=== PATIENT | male | born 1950 | race Caucasian/White ===

== ENCOUNTER 2019-09-30 06:14 | Inpatient (IN) | payer MEDICARE ==
[~2019-09-30] VITALS: Ht 172.7 cm; Wt 78.0 kg
[2019-09-30] VITALS (8 sets, daily range): BP systolic 93–169; BP diastolic 52–74
[2019-09-30] MEDS ORDERED: DICLOFENAC SOD50 M1 PO (06:32)
[2019-09-30] MEDS ORDERED: CRESTOR10 MG PO (06:32)
--- NOTE | 2019-09-30 06:58 | NUR ---
REPORT RECEIVED FROM ADAN PRATT. THIS NURSE TO ASSUME PT CARE AT THIS TIME.
[2019-09-30 07:02] LABS: ABSOLUTE BASOPHILS 0.1 thou/uL (0.0-0.2); ABSOLUTE EOSINOPHILS 0.1 thou/uL (0.0-0.7); ABSOLUTE LYMPHOCYTES 1.1 thou/uL (0.8-5.3); ABSOLUTE MONOCYTES 0.5 thou/uL (0.0-1.2); ABSOLUTE NEUTROPHILS 5.5 thou/uL (1.6-8.1); BASOPHILS 0.7 %; EOSINOPHILS 1.4 %; HEMATOCRIT 42.5 % (42.0-52.0); HEMOGLOBIN 14.3 gm/dL (14.0-18.0); LYMPHOCYTES 14.8 %; MCH 29.2 pg (26.0-34.0); MCHC 33.7 g/dL (28.0-37.0); MCV 86.8 fL (80.0-100.0); MONOCYTES 6.4 %; MPV 7.8 fl. (7.2-11.1); NUCLEATED RBCS 0 /100WBC; PLATELET COUNT* 261 thou/uL (150-400); POLYS 76.7 %; RBC 4.89 mil/uL (4.50-6.00); WBC 7.2 thou/uL (4.0-11.0)
[2019-09-30 07:11] LABS: CALCIUM 8.5 mg/dL (8.5-10.1); CREATININE 0.9 mg/dL (0.6-1.3); POTASSIUM 3.7 mmol/L (3.5-5.1)
[2019-09-30 07:19] LABS: ALBUMIN 3.4 g/dL (3.4-5.0); MAGNESIUM 2.2 mg/dL (1.8-2.4); TOTAL BILIRUBIN 0.4 mg/dL (<0.1-1.0); TOTAL PROTEIN 7.6 g/dL (6.4-8.2)
--- NOTE | 2019-09-30 10:20 | EKG ---
[place] [address] ELECTROCARDIOGRAM REPORT Name: KIANNA HU LINDSAY Room: [facility]#: [id number] Admission: 09/30/19 Attend Phys: Discharge: Date of : 48 Date of Service: 09/30/19625 Report #: [id number] THIS REPORT FOR: //name// [facility] ED Test Date: 2019-09-30 Test Time: 06:26:28 Pat Name: KIANNA HU Department: Room: Gender: Advertising Designer: [place] : 1950 Requested By: Huber Sanders Order Number: [id number] MD: Blaze Ricketts Measurements Intervals [place] Rate: 55 P: -12 IN: 203 QRS: -24 QRSD: 105 T: 1 QT: 452 QTc: 433 Interpretive Statements Sinus rhythm Inferior infarct, old No previous ECG available for comparison Electronically Signed On 09-30-2019 10:19:48 INDUCTION COORDINATION POWER ENGINEER by Blaze Ricketts [email or web address] <ELECTRONICALLY SIGNED> By: Blaze Ricketts MD, [facility] 09/30/19 1019 5 5 Blaze Ricketts MD, FACC /EPI
--- NOTE | 2019-09-30 16:30 | NUR ---
REPORT GIVEN TO ADAN AZAR WHO IS TO ASSUME PT CARE INPATIENT NURSE.
--- NOTE | 2019-10-01 03:43 | NUR ---
PATIENT SLEPT OFF AND ON DURING THE NIGHT WITH AT BEDSIDE. PT IS ON ROOM AIR. LOW BLOOD PRESSURE BUT WITHIN NORMAL A DOCUMENTED AT BEGINNING OF THE SHIFT BUT IT HAS COME UP. PT C/O RT CHEST (LUNG) PAIN; TRAMADOL GIVEN. PT RETURNED TO SLEEP. PT WITH FLUIDS INFUSING PER DR ORDER. FREQUENTLY USED ITEMS AND CALL LIGHT WITHIN REACH. SIDERAILS UPX2. WILL CONTINUE TO MONITOR.
[2019-10-01 03:52] LABS: HEMATOCRIT 36.5 % (42.0-52.0); MCH 28.6 pg (26.0-34.0); MCHC 32.9 g/dL (28.0-37.0); MCV 87.1 fL (80.0-100.0); MPV 8.1 fl. (7.2-11.1); RBC 4.19 mil/uL (4.50-6.00); RDW-CV 14.1 % (10.5-14.5); WBC 18.7 thou/uL (4.0-11.0)
[2019-10-01 04:22] LABS: CALCIUM 8.1 mg/dL (8.5-10.1); POTASSIUM 4.4 mmol/L (3.5-5.1)
[2019-10-01 08:40] VITALS: BP 106/56
[2019-10-01 16:00] VITALS: BP 113/62
[2019-10-01 20:00] VITALS: BP 116/66
--- NOTE | 2019-10-01 20:09 | NUR ---
PATIENT AWAKE IN BED. PATIENT AMBULATED IN ROOM TO CHAIR AND BATHROOM. ALL SAFETY MEASURES MAINTAINED. PATIENT DENIES FURTHER NEEDS AT THIS TIME. FAMILY AT BEDSIDE.
[2019-10-02 04:40] LABS: HEMATOCRIT 33.5 % (42.0-52.0); HEMOGLOBIN 11.3 gm/dL (14.0-18.0); MCH 29.5 pg (26.0-34.0); MCHC 33.7 g/dL (28.0-37.0); MCV 87.8 fL (80.0-100.0); MPV 8.6 fl. (7.2-11.1); RBC 3.81 mil/uL (4.50-6.00); RDW-CV 14.1 % (10.5-14.5); WBC 14.3 thou/uL (4.0-11.0)
--- NOTE | 2019-10-02 04:43 | NUR ---
PO PAIN MEDICATION GIVEN EVERY 6 HOUR REQUESTED BY PAIN FRO LOWER RIGHT CHEST PAIN, NO COUGH NOTED, PT TO BATHROOM WITHOUT DIFF, RESTED WILL THROUGHOUT HOURLY ROUNDS , WILL CONITUE WITH PRESENT PLAN OF CARE.
[2019-10-02 04:52] LABS: CALCIUM 7.7 mg/dL (8.5-10.1); MAGNESIUM 2.1 mg/dL (1.8-2.4); POTASSIUM 3.8 mmol/L (3.5-5.1)
[2019-10-02 08:06] VITALS: BP 117/58
[2019-10-02 12:20] LABS: INFLUENZA A ANTIGEN Negative (Negative); INFLUENZA B ANTIGEN Negative (Negative)
--- NOTE | 2019-10-02 13:05 | CON ---
[address] [address] CONSULTATION Name: KIANNA HU Room: [address] IN .R.#: [id number] Admission: 09/30/19 Attend Phys: Beth Huynh MD Discharge: Date of : 48 Report #: [id number] THIS REPORT FOR: //name// cc: MAVERICK - No family physician/PCP MAVERICK - No family physician/PCP ~ THIS REPORT FOR: //name// CC: MAVERICK physician/PCP Beth Huynh DATE OF SERVICE: 10/01/2019 I was asked to see this 69-year-old gentleman for abnormal CT of the chest. HISTORY OF PRESENT ILLNESS: He is a lifelong nonsmoker. He was brought to the Emergency Room with chest pain, which was right-sided and was worse with deep breaths, which was started yesterday. About a week ago, he noticed a cough. He denies fever or chills. He did have some head congestion. He denies gastroesophageal reflux symptoms or diarrhea. He denies fever or chills. PAST MEDICAL HISTORY: Hypercholesterolemia. ALLERGIES: No known drug allergies. MEDICATIONS: Currently, he is on azithromycin, ibuprofen, Toradol p.r.n., Rocephin, Lipitor, Lovenox 40 mg subcutaneous daily. SOCIAL HISTORY: He is a lifelong nonsmoker. FAMILY HISTORY: Both parents had lung cancer. They were heavy smoker. REVIEW OF SYSTEMS: As mentioned as above, other systems otherwise negative. PHYSICAL EXAMINATION: GENERAL: Well-developed gentleman. VITAL SIGNS: His O2 saturation is 98%, respiratory rate 20, heart rate 81, blood pressure 128/64, temperature 36.6. HEENT: Normocephalic, atraumatic. Pupils are equal, round, reactive to light. Throat is clear. Nose is clear. NECK: There is no JVD, lymphadenopathy or thyromegaly. CARDIOVASCULAR: Regular rate and rhythm. PMI is nondisplaced. CHEST: Inspection is normal. LUNGS: There are diminished breath sounds on the right. Left is clear to auscultation. ABDOMEN: Soft. Bowel sounds are good. There is no mass. EXTREMITIES: [place] [address] CONSULTATION Name: KIANNA HU LINDSAY Room: [address] IN [facility]#: [id number] Admission: 09/30/19 Attend Phys: Beth Huynh MD Discharge: Date of : 48 Report #: [id number] LYMPHATICS: There is no lymphadenopathy. NEUROLOGIC: Alert and oriented. SKIN: Warm. LABORATORY DATA: I reviewed the following lab data: WBC 18.7, hemoglobin 12, platelet 233. Sodium 138, potassium 4.4, chloride 105, CO2 is 24, BUN 21, creatinine 1, glucose 110. Troponin less than 0.06. CT of the chest did show a right middle lobe pleural based consolidation versus mass versus atelectasis. No evidence of pulmonary embolism, right middle lobe, right lower lobe atelectasis, right elevated hemidiaphragm. IMPRESSION: 1. Pleuritic chest pain. 2. Abnormal CT of the chest. Differential diagnosis consolidation versus mass versus atelectasis. 3. ? pneumonia. 4. Hyperlipidemia. PLAN AND RECOMMENDATIONS: 1. Titrate FiO2 to keep O2 saturation 92%. 2. Start bronchodilator. 3. Continue antibiotic. 4. Influenza A and B. Nasal swab for influenza A and B. 5. I do recommend a repeat CT of the chest in 4 weeks. If he continues to have the pleural based mass/consolidation, he would require CT-guided biopsy. 6. The findings and recommendations were discussed with the patient, his and Dr. Huynh. Thank you very much for allowing me to participate in care of this very nice gentleman. <ELECTRONICALLY SIGNED> By: Carmelita Wiley MD 10/02/19 1305 1056 [id number] Wiley MD /nt
[2019-10-02 16:00] VITALS: BP 127/58
--- NOTE | 2019-10-02 19:55 | NUR ---
PATIENT AWAKE IN BED WITH SPOUSE AT BEDSIDE. PATIENT ENCOURAGED TO AMBULATED AND USE IS THROUGHOUT [facility]. ALL SAFETY MEASURES MAINTAINED. PATIENT DENIES FURTHER NEEDS AT THIS TIME.
[2019-10-02 20:00] VITALS: BP 138/69
[2019-10-03 04:07] LABS: HEMATOCRIT 36.6 % (42.0-52.0); HEMOGLOBIN 12.2 gm/dL (14.0-18.0); MCHC 33.4 g/dL (28.0-37.0); MCV 86.8 fL (80.0-100.0); MPV 8.3 fl. (7.2-11.1); RBC 4.22 mil/uL (4.50-6.00); RDW-CV 14.1 % (10.5-14.5); WBC 12.9 thou/uL (4.0-11.0)
[2019-10-03 04:37] LABS: ALBUMIN 2.3 g/dL (3.4-5.0); CALCIUM 8.2 mg/dL (8.5-10.1); CREATININE 0.9 mg/dL (0.6-1.3); POTASSIUM 3.7 mmol/L (3.5-5.1); TOTAL BILIRUBIN 0.4 mg/dL (<0.1-1.0); TOTAL PROTEIN 6.3 g/dL (6.4-8.2)
[2019-10-03 04:43] LABS: TOTAL PROTEIN 5.7 g/dL (6.4-8.2)
[2019-10-03 08:00] VITALS: BP 135/66
[2019-10-03 09:13] LABS: APTT 35.5 Seconds (25.0-31.3); PROTIME 10.7 Seconds (9.20-11.50)
[2019-10-03 16:00] VITALS: BP 144/80
--- NOTE | 2019-10-03 16:16 | NUR ---
Pt lives at home with spouse. No known history of HH or SNF and no DME used prior to hospitalization. SW/CM to continue to follow to assist with safe dc planning.
[2019-10-03 17:33] LABS: BF RBC 1741 /mm3; TOTAL CELL COUNT 1379 /mm3
[2019-10-03 17:49] LABS: SOURCE THORACENTESIS
[2019-10-03 17:54] LABS: CLARITY SLIGHTLY HAZY; TOTAL VOLUME 55 ml
[2019-10-03 18:07] LABS: BF LYMPHOCYTES 1 %; BF POLYS 99 %
[2019-10-03 18:09] LABS: SOURCE THORACENTESIS
[2019-10-03 20:00] VITALS: BP 159/68
[2019-10-04 05:17] LABS: ABSOLUTE BASOPHILS 0.1 thou/uL (0.0-0.2); ABSOLUTE EOSINOPHILS 0.2 thou/uL (0.0-0.7); ABSOLUTE LYMPHOCYTES 0.9 thou/uL (0.8-5.3); ABSOLUTE MONOCYTES 0.9 thou/uL (0.0-1.2); ABSOLUTE NEUTROPHILS 8.8 thou/uL (1.6-8.1); BASOPHILS 0.5 %; EOSINOPHILS 1.6 %; HEMATOCRIT 35.6 % (42.0-52.0); HEMOGLOBIN 12.2 gm/dL (14.0-18.0); LYMPHOCYTES 8.6 %; MCH 29.3 pg (26.0-34.0); MCHC 34.2 g/dL (28.0-37.0); MCV 85.6 fL (80.0-100.0); MONOCYTES 8.1 %; MPV 7.5 fl. (7.2-11.1); NUCLEATED RBCS 0 /100WBC; PLATELET COUNT* 248 thou/uL (150-400); POLYS 81.2 %; RBC 4.15 mil/uL (4.50-6.00); RDW-CV 14.1 % (10.5-14.5); WBC 10.8 thou/uL (4.0-11.0)
[2019-10-04 05:29] LABS: CALCIUM 7.8 mg/dL (8.5-10.1); CREATININE 0.9 mg/dL (0.6-1.3); POTASSIUM 3.4 mmol/L (3.5-5.1)
--- NOTE | 2019-10-04 06:43 | NUR ---
ASSUMED CARES AT 1920. ALERT AND ORIENTED. PLEASANT. C/O PAIN TO RIGHT SIDE CHEST TUBE SITE. PAIN MEDS GIVEN NEEDED. USED URINAL. PT WANTED TO HOLD OFF MAG CITRATE FOR NOW. CHEST TUBE ON CONTINUOUS SUCTION WITH YELLOW DRAINAGE NOTED. DRESSING CHANGED/REINFORCED. PT C/O FEELING SOB INITIALLY BUT FELT BETTER NIGHT WENT ON. SLEPT LITTLE. AT BEDSIDE.
[2019-10-04 07:25] VITALS: BP 132/69
--- NOTE | 2019-10-04 15:47 | NUR ---
ASSUMED CARE OF PT AROUND 0730 THIS AM. REFER TO ASSESSMENT. PULMOLOGY ANTICIPATES INJECTED PLEUREL EFFUSION WITH BLOOD THINNER TO DECREASE VISCOSITY OF FLUID TO DRAIN IN CHEST TUBE. LOVENOX ON HOLD AT THIS TIME. ANTICIPATE PROCEDURE TOMORROW. NO OTHER CONCERNS AT THIS TIME. CLWR. WCTM.
[2019-10-04 16:00] VITALS: BP 152/86
--- NOTE | 2019-10-04 18:04 | NUR ---
ASSUMED CARE OF PATIENT FROM ADAN COLON. PATIENT RESTING IN BED AT THIS TIME. CHEST TUBE TO RIGHT SIDE, NO ABNORMALITIES NOTED WITH CHEST TUBE/CHAMBER. IVF INFUSING. WILL CONTINUE TO MONITOR.
--- NOTE | 2019-10-04 19:30 | NUR ---
PT CHEST TUBE EXAMINED AT SHIFT CHANGE BY ADAN GALEAS AND MYSELF, SUCTION MAINTAINED AT -20, NO BUBBLING IN CHEST TUBE CHAMBER, YELLOW LIQUID PRESENT IN CHEST TUBING. PT FAMILY MEMBER STATES SHE THINKS "THERE SHOULD BE BUBBLES". GUDELIA ARELLANO NOTIFIED NSG SUP JEREMIAH WHO VERIFIES NO BUBBLING SHOULD BE NOTED. FAMILY MEMBER INFORMED, REQUESTING NSG SUP TO COME CHECK IT.INFORMED NSG SUP OF PT REQUEST, STATES SHE IS NOT AVAILABLE AT THIS TIME DUE TO URGENCY ON OTHER UNIT. PT VSS, BREATHING WITHOUT DIFFICULTY, SATS WNL. TALKING AND PLEASANT. WILL CONTINUE TO MONITOR. CALL LITE IN EASY REACH.
[2019-10-04 19:45] VITALS: BP 148/78
--- NOTE | 2019-10-05 01:00 | NUR ---
CHRISTOPHER DANIELS HERE TO CHECK ON CHEST TUBE, CONFIRMS ITS OPERATING IT SHOULD. WILL CONTINUE TO MONITOR.
[2019-10-05 05:25] LABS: ABSOLUTE BASOPHILS 0.1 thou/uL (0.0-0.2); ABSOLUTE EOSINOPHILS 0.2 thou/uL (0.0-0.7); ABSOLUTE LYMPHOCYTES 0.9 thou/uL (0.8-5.3); ABSOLUTE MONOCYTES 0.8 thou/uL (0.0-1.2); ABSOLUTE NEUTROPHILS 7.6 thou/uL (1.6-8.1); BASOPHILS 0.6 %; EOSINOPHILS 1.6 %; HEMATOCRIT 39.1 % (42.0-52.0); HEMOGLOBIN 13.2 gm/dL (14.0-18.0); LYMPHOCYTES 9.3 %; MCH 29.2 pg (26.0-34.0); MCHC 33.8 g/dL (28.0-37.0); MCV 86.3 fL (80.0-100.0); MONOCYTES 8.1 %; MPV 7.7 fl. (7.2-11.1); NUCLEATED RBCS 0 /100WBC; PLATELET COUNT* 278 thou/uL (150-400); POLYS 80.4 %; RBC 4.52 mil/uL (4.50-6.00); RDW-CV 14.2 % (10.5-14.5); WBC 9.5 thou/uL (4.0-11.0)
[2019-10-05 05:47] LABS: ALBUMIN 2.2 g/dL (3.4-5.0); CALCIUM 8.3 mg/dL (8.5-10.1); CREATININE 0.8 mg/dL (0.6-1.3); POTASSIUM 3.7 mmol/L (3.5-5.1); TOTAL BILIRUBIN 0.5 mg/dL (<0.1-1.0); TOTAL PROTEIN 6.3 g/dL (6.4-8.2)
--- NOTE | 2019-10-05 06:29 | NUR ---
PT SLEPT WELL OVERNIGHT WITHOUT COMPLAINTS AFTER RECEIVING TRAMADOL AND IBUPROFEN AT HS. FAMILY MEMBER AT BEDSIDE OVERNIGHT ATTENTIVE TO CARES. CHEST TUBE DRAINING YELLOW LIQUID 150MLS THIS SHIFT. AM LABS DRAWN. VSS, PT UP TO BSC BUT STATES NO BM THIS SHIFT. ABLE TO USE CALL LITE AND MAKE NEEDS KNOWN.LFA IVF INFUSING PER PUMP.
[2019-10-05 08:06] VITALS: BP 161/76
[2019-10-05 11:37] LABS: INR 1.1; PROTIME 10.9 Seconds (9.20-11.50)
--- NOTE | 2019-10-05 12:20 | CON ---
[address] [address] CONSULTATION Name: KIANNA HU Room: [address] IN M.R.#: [id number] Admission: 09/30/19 Attend Phys: Beth Huynh MD Discharge: Date of : 48 Report #: [id number] THIS REPORT FOR: //name// cc: MAVERICK Forbes family physician/PCP MAVERICK - Leidy family physician/PCP ~ THIS REPORT FOR: //name// CC: MAVERICK physician/PCP Beth Huynh DATE OF SERVICE: 10/04/2019 INFECTIOUS DISEASE CONSULTATION ATTENDING PHYSICIAN: Beth Huynh MD REASON FOR EVALUATION: Right-sided complicated pneumonitis with empyema. HISTORY OF PRESENT ILLNESS: Chart reviewed, patient examined. This is a 69-year-old with history of hyperlipidemia, who developed right-sided chest pain, some difficulty breathing. On the day of admission, he was awoken building drafter. He noted there was some pleuritic component to it. He denied any fevers or chills, has not had significant gastrointestinal-related complaints. He was evaluated and was found to have imaging evidence of consolidative process involving the right side. It was collapse of the lateral segment of the right middle lobe with some pleural effusion present as well. Serial x-rays were done and followup CT which showed worsening loculated right pleural effusion. This prompted a percutaneous drainage procedure. There was some degree of volume recovered; however, it was felt to have a large residual due to the loculated nature. He overall feels better. Chest tube has been in. Denies any fevers. Denies any particular risk factors. He has not had previous similar type problems. ALLERGIES: None known. MEDICATIONS: Currently include ibuprofen, ipratropium and albuterol inhaler, ceftriaxone and azithromycin, atorvastatin, p.r.n. analgesics and antiemetics. PAST MEDICAL HISTORY: Hyperlipidemia. SOCIAL HISTORY: Nonsmoker, no ethanol, no illicit drug use. FAMILY HISTORY: Noncontributory. REVIEW OF SYSTEMS: Otherwise, unremarkable. Denies any GI-related complaints. [place] [address] CONSULTATION Name: KIANNA HU LINDSAY Room: [address]#: [id number] Admission: 09/30/19 Attend Phys: Beth Huynh MD Discharge: Date of : 48 Report #: [id number] PHYSICAL EXAMINATION: GENERAL: He is alert, cooperative, appropriate, appears reasonably well nourished, mild distress. VITAL SIGNS: Temperature 98.3, pulse 74, respirations 22, blood pressure 132/69. SKIN: Warm, dry. HEENT: Otherwise, unremarkable. Normocephalic. Extraocular muscles intact. NECK: Supple. LUNGS: Diminished breath sounds on the right. He has got the chest tube in place. A few crackles on the left. HEART: Regular. I do not appreciate murmur. ABDOMEN: Soft, nontender, nondistended. GASTROINTESTINAL: Deferred. RECTAL: Deferred. LABORATORY DATA: Electrolytes from today, sodium 138, potassium 3.4, chloride 106, bicarbonate 27, anion gap of 5, BUN and creatinine 10 and 0.9. Prealbumin of 5.5. CBC: White count of 10.8, H and H 12.2 and 35.6, platelets of 248. Thoracentesis showed a 1379 white cells, 99% poly. Her pH is pending. Liver functions otherwise unremarkable. Albumin of 2.3. Total protein 6.3, estimated GFR of 83. ASSESSMENT: Complicated pneumonitis with apparent empyema, right side. We will continue empiric antimicrobial therapy at this point, he is not overtly toxic. The cultures are in progress. Additional issues include lack of adequate drainage, felt secondary to the thick nature of the fluid. Noted plans to possibly try to utilize chest tube to further break down the internal fluid. If not, may well need surgical intervention. <ELECTRONICALLY SIGNED> By: Keanu Cain MD 10/05/19 1220 1152 [id number] Cain MD /nt
[2019-10-05 15:30] VITALS: BP 102/78
[2019-10-05 17:12] LABS: BODY FLUID AMYLASE 21 U/L (()); BODY FLUID LDH 1517 IU/L (()); BODY FLUID PROTEIN 4.1 g/dL (())
--- NOTE | 2019-10-05 17:28 | NUR ---
PATIENT GIVEN PRN IBUPROFEN FOR RIGHT SIDE CHEST PAIN FROM CHEST TUBE. IVF AND SCHED ABX INFUSED ORDERED. DR. FINLEY HERE THIS AFTERNOON AND ALTEPASE INJECTED INTO CHEST TUBE. PATIENT HAD LARGE AMOUNT OF YELLOW BLOOD TINGED DRAINAGE OUT AFTER INJECTION. PATIENT HAD CT OF CHEST PRIOR TO INJECTION. DR. FINLEY CHANGED DRESSING OVER STAT LOCK TO CHEST TUBE. PATIENT BP WNL'S THIS EVENING, WAS ELEVATED THIS AM.
[2019-10-05 21:00] VITALS: BP 172/76
[2019-10-06 04:02] LABS: HEMATOCRIT 34.8 % (42.0-52.0); HEMOGLOBIN 11.8 gm/dL (14.0-18.0); MCHC 33.7 g/dL (28.0-37.0); MCV 85.9 fL (80.0-100.0); MPV 7.6 fl. (7.2-11.1); NUCLEATED RBCS 0 /100WBC; PLATELET COUNT* 286 thou/uL (150-400); RBC 4.05 mil/uL (4.50-6.00); WBC 9.6 thou/uL (4.0-11.0)
[2019-10-06 04:43] LABS: CALCIUM 7.9 mg/dL (8.5-10.1); CREATININE 0.8 mg/dL (0.6-1.3)
--- NOTE | 2019-10-06 05:50 | NUR ---
PATIENT SLEPT PART OF THE NIGHT. IV FLUIDS CONTINUE TO INFUSE AT 100 ML/HR. PAIN MEDICINE WAS GIVEN TWICE THIS SHIFT. CHEST TUBE REMAINS IN PLACE TO R LUNG HOOKED TO SUCTION AT NEGATIVE 20. DRAINAGE IS YELLOW. REMAINS AT BEDSIDE. WILL CONTINUE TO MONITOR.
[2019-10-06 06:22] LABS: ABSOLUTE EOSINOPHILS 0.1 thou/uL (0.0-0.7); ABSOLUTE LYMPHOCYTES 0.8 thou/uL (0.8-5.3); ABSOLUTE MONOCYTES 0.9 thou/uL (0.0-1.2); ABSOLUTE NEUTROPHILS 7.9 thou/uL (1.6-8.1); ANISOCYTOSIS 1+; PLATELET ESTIMATE ADEQUATE; POIKILOCYTOSIS 1+
[2019-10-06 07:55] VITALS: BP 153/75
[2019-10-06 15:43] VITALS: BP 165/74
[2019-10-06 16:47] VITALS: BP 165/74
--- NOTE | 2019-10-06 16:50 | NUR ---
NATHALY was informed of request for transfer for possible cardiothoracic surgery needs. Pt preference for transfer facility of [facility] or . NATHALY contacted transfer teams and faxed requested information. [facility] reviewing and latest status update is that they are continuing to review images and will call back after decision made, insurance checked, and if/when bed available. received information but has not provided response yet. NATHALY provided information to pt nurse in case transfer able to happen after hours.
[2019-10-06 18:07] LABS: BODY FLUID PH 7.1 (Not Estab.)
--- NOTE | 2019-10-06 19:28 | NUR ---
PATIENT AWAKE IN CHAIR. PATIENT AMBULATED TO CHAIR AND COMMODE THROUGHOUT SHIFT. CHEST TUBE REMAINS IN PLACE. FLUID IN CHEST TUBE IS AT 120ML. ALL SAFETY MEASURES MAINTAINED. ELTON FROM [facility] TRANSFER TEAM CALLED TO REPORT PATIENT HAS BEEN ACCEPTED AND GOING TO ROOM H404. REPORT TO ADAN KENNY.
[2019-10-07 07:08] LABS: ADENOVIRUS Negative (Negative); INFLUENZA A Negative (Negative); INFLUENZA B Negative (Negative); METAPNEUMOVIRUS Negative (Negative); PARAINFLUENZA 1 Negative (Negative); PARAINFLUENZA 2 Negative (Negative); PARAINFLUENZA 3 Negative (Negative); RHINOVIRUS Negative (Negative); RSV A Negative (Negative); RSV B Negative (Negative)
--- NOTE | 2019-10-07 11:08 | PATH ---
[address] [address] PATHOLOGY RPT PROCEDURE Name: KIANNA HU Room: [address] IN [facility]#: [id number] Admission: 09/30/19 Date of : 48 Discharge: 10/06/19 Report #: [id number] Path Case #: [id number] Note [facility] Accession Number: [id number] TESTS RESULT FLAG UNITS REF RANGE LAB Clinician Provided Cytology Information No. of containers..01 Other (Miscellaneous) Source: RIGHT PLEURAL FLUID DIAGNOSIS: 02 RIGHT PLEURAL FLUID NO MALIGNANT CELLS IDENTIFIED. EXTENSIVE ACUTE INFLAMMATION. THIS INTERPRETATION INCLUDES EVALUATION OF A CELL BLOCK. Diagnosis provided b 02 Octavio Hensley MD, Pathologist NPI- [id number] Signed out by: 03 Octavio Hensley MD, Pathologist NPI- [id number] Performed by: 01 Loren Low, Catering Truck Operator ([facility]) Gross description: 01 35ML, CLOUDY YELLOW, 1 TP 1CB /LCS 10/04/2019 1456 Local FLAG LEGEND: L-Low Normal,H-High Normal,LL-Alert Low,HH-Alert High <-Panic Low,>-Panic High,A-Abnormal,AA-Critical Abnormal Performed at: [address] [place] [address] David Costello MD, 02 [facility] [address] [place] [address] Octavio Hensley MD, [address] [address] [place] [address] Octavio Hensley MD, Specimen Comment: A courtesy copy of this report has been sent to [phone] Specimen Comment: Report sent to Performed at: [address], [place], [place] [id number] MD David Costello MD Phone: [phone]
== END 2019-10-06 19:49 | disposition short-term general hospital (02) | DRG 871 ==
LOC: M.ERS 06:14 → M.TBA-ER 10:40 → M.3W 10:40
PROVIDERS: Emergency Medicine Emergency Medical Services; Internal Medicine; Internal Medicine Pulmonary Disease; ADMIT Internal Medicine
PROC: 0W993ZZ Drainage of Right Pleural Cavity, Percutaneous Approach (ICD-10-PCS; principal; 2019-10-03)
PROC: 0W9930Z Drainage of Right Pleural Cavity with Drainage Device, Percutaneous Approach (ICD-10-PCS; principal; 2019-10-03)
DX: A41.9 Sepsis, unspecified organism (principal); J15.6 Pneumonia due to other Gram-negative bacteria; E44.1 Mild protein-calorie malnutrition; J91.8 Pleural effusion in other conditions classified elsewhere; E78.5 Hyperlipidemia, unspecified; E78.00 Pure hypercholesterolemia, unspecified; R07.81 Pleurodynia; Z79.1 Long term (current) use of non-steroidal anti-inflammatories (NSAID); Z68.26 Body mass index [BMI] 26.0-26.9, adult; Z79.899 Other long term (current) drug therapy